=== PATIENT | female | born 1935 | race Caucasian/White ===

== ENCOUNTER → 2018-11-01 | Outpatient (CLI) | payer OTHER ==
[~2018-11-01] MED LIST: CALCITONIN NASAL; CITA40TA6 PO; MIRT30TA6 PO; TOPI50TA24 PO; pravastatin PO
== END | disposition home or self-care (01) ==
LOC: RAH 12:45
PROVIDERS: ATTEND Internal Medicine
DX: Z85.51 Personal history of malignant neoplasm of bladder (principal)
CPT/HCPCS: 76856

== ENCOUNTER → 2018-11-30 | Outpatient (CLI) | payer OTHER | END | disposition home or self-care (01) | LOC: RAH 13:51 | PROVIDERS: ATTEND Urology | DX: R31.0 Gross hematuria (principal); Z85.51 Personal history of malignant neoplasm of bladder | CPT/HCPCS: 76770 ==